=== PATIENT | female | born 1980 | race Asian ===

== ENCOUNTER 2016-11-18 23:15 | Emergency (ER) | payer BC ==
[~2016-11-18] VITALS: Ht 157.5 cm; Wt 80.3 kg
[2016-11-18 23:38] VITALS: BP 120/73
[2016-11-18] MEDS ORDERED: AMOX1TAB61 PO (23:52)
--- NOTE | 2016-11-18 23:53 | PHYS DOC ---
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 She does state that she's had some swelling on the left maxillary site that started tonight. Patient states that she has not taken anything for the pain and discomfort. She states in the past she is taken some Flonase but has not recently been taking this medication. She does take Zyrtec on a nightly basis. Patient denies any fever, chills or any nausea or vomiting. Review of Systems Review of Systems Constitutional: Denies fever or chills [] Eyes: Denies change in visual acuity, redness, or eye pain [] HENT: nasal congestion denies sore throat [] Respiratory: Denies cough or shortness of breath [] Cardiovascular: No additional information not addressed in HPI [] GI: Denies abdominal pain, nausea, vomiting, bloody stools or diarrhea [] : Denies dysuria or hematuria [] Musculoskeletal: Denies back pain or joint pain [] Integument: Denies rash or skin lesions [] Neurologic: Denies headache, focal weakness or sensory changes [] Endocrine: Denies polyuria or polydipsia [] Allergies Allergies Allergies Coded Allergies Type Severity Reaction Last Updated Verified No Known Drug Allergies 11/18/16 No Physical Exam Physical Exam Constitutional: Well developed, well nourished, no acute distress, non-toxic appearance. [] HENT: Normocephalic, atraumatic, bilateral external ears normal, oropharynx moist, no oral exudates, nose normal. Bilateral tympanic membranes appear to be normal. Patient with redness noted in the throat with postnasal drip. No exudate no erythematous noted. Patient with no cervical anterior adenopathy noted. Patient was noted to have maxillary sinus tenderness with swelling on the left. She is also noted to have dental sinus tenderness as well. Bilateral nares appears to have swelling noted. Eyes: PERRLA, EOMI, conjunctiva normal, no discharge. [] Neck: Normal range of motion, no tenderness, supple, no stridor. [] Cardiovascular:Heart rate regular rhythm, no murmur [] Lungs & Thorax: Bilateral breath sounds clear to auscultation [] Skin: Warm, dry, no erythema, no rash. [] Back: No tenderness Extremities: No tenderness, no cyanosis, no clubbing, ROM intact, no edema. [] Neurologic: Alert and oriented X 3, normal motor function, normal sensory function, no focal deficits noted. [] Psychologic: Affect normal, judgement normal, mood normal. [] Current Patient Data Vital Signs Vital Signs Date Time Temp Pulse Resp B/P (MAP) Pulse Ox O2 Delivery O2 Flow Rate FiO2 11/18/16 23:38 97.9 83 16 96 Room Air 97.9 EKG EKG [] Radiology/Procedures Radiology/Procedures [] Course & Med Decision Making Course & Med Decision Making Pertinent Labs and Imaging studies reviewed. (See chart for details) Patient was instructed to use Flonase [id number]. She'll also be encouraged to use Sudafed and Mucinex DM. Patient will be placed on Augmentin 1 tablet twice day for the next 10 days. Recommended Tylenol and ibuprofen for fever chills or generalized body aches and discomfort. Patient was also encouraged drink plenty of fluids. Follow-up with primary care physician in the next 7-10 days. Signs and symptoms to return back to emergency department as been provided. Patient agrees with discharge instructions treatment regimens and follow-up recommendations. [] Dragon Disclaimer Dragon Disclaimer This electronic medical record was generated, in whole or in part, using a voice recognition dictation system. Departure Departure Impression: Primary Impression: Acute sinusitis Disposition: 01 HOME, SELF-CARE Condition: STABLE Referrals: UNKNOWN PCP NAME (PCP) Patient Instructions: Sinusitis, [id number] Additional Instructions: Activity as tolerated. Medications as prescribed. Sudafed may be taken as directed by compensation manager [id number]. Mucinex DM may also be taken as instructed by compensation manager [id number]. You may also use Flonase that may be purchased [id number] use as directed by compensation manager. Tylenol or ibuprofen as needed for fever chills or generalized body aches and discomfort. Drink plenty of fluids. Follow-up to primary care physician in the next 7-10 days. Return back to emergency department for signs and symptoms of become worse. Scripts Amoxicillin/Potassium Clav (AUGMENTIN 875-125 TABLET) 1 Each Tablet 1 TAB PO BID, #20 TAB Prov: ARCADIO COOPER APRN 11/18/16 ARCADIO COOPER APRN November 18, 2016 23:53
== END 2016-11-19 00:15 | disposition home or self-care (01) ==
LOC: ER 23:15
DX: J01.00 Acute maxillary sinusitis, unspecified (principal)
CPT/HCPCS: 99283